=== PATIENT | male | born 1935 | race Caucasian/White ===

== ENCOUNTER 2016-10-18 10:11 | Day surgery (SDC) | payer MEDICARE ==
[2016-10-17 11:34] VITALS: BMI 22.9
[~2016-10-18 10:11] MED LIST: LACTATED RINGERS 1,000 ML IV SCH
[2016-10-18 11:28] VITALS: TEMP 96.6
[2016-10-18] MEDS ORDERED: ONDANSETRON 4 MG/2 ML VIAL IVP ONE (12:07)
[2016-10-18] MEDS ORDERED: PHENYLEPHRINE-0.9% NACL SYG 1 MG/10 ML SYRINGE ONE (12:23)
[2016-10-18] MEDS ORDERED: PROPOFOL 10 MG/ML 20 ML VIAL IV ONE (12:23)
--- NOTE | 2016-10-18 12:36 | P.PCN ---
Date of Procedure: 10/18/16 Procedure(s) Performed: BRIEF HISTORY: Patient is a 81-year-old, pleasant, male, scheduled for an upper endoscopy as a part of evaluation of progressive weight loss and abdominal pain for the last 6 months duration.. PROCEDURE PERFORMED: Esophagogastroduodenoscopy with biopsy. PREOPERATIVE DIAGNOSIS: Abdominal Pain and progressive weight loss. IV sedation per anesthesia. PROCEDURE: After informed consent was obtained, the patient was brought into the endoscopy unit. IV sedation was administered by Anesthesia under continuous monitoring. Initially the Olympus GIF-140 video endoscope was inserted into the mouth. Esophagus intubated without any difficulty. It was gradually advanced into the stomach and duodenum and carefully examined. The bulb and the second part of the duodenum had some duodenitis and biopsies were done from this area.. The scope at this time was withdrawn to the stomach, adequately insufflated with air, and upon careful examination, mucosa of the antrum, had mild diffuse gastritis and biopsies were done from this area. body, cardia and the fundus appeared normal. The scope was then withdrawn into the esophagus. Small hiatal hernia noted. The GE junction was located at 35 cm from the incisors. There was circumferential erythema with mucosal friability noted at the GE junction extending from 34-35 cm from the incisors and biopsies were done from this area. Also there was some luminal narrowing noted in this area but did not impede the passage of the scope. The rest of the esophagus appeared normal and the patient tolerated the procedure well. IMPRESSION: 1. Circumferential erythema with friability of the mucosa at the GE junction/ distal esophagus consistent with reflux esophagitis. 2. Few scattered gastritis and duodenitis. 3. Small hiatal hernia. RECOMMENDATIONS: The findings of this examination were discussed with the patient as well as his family. He was advised to follow with the biopsy results. He will continue with proton pump inhibitors and follow antireflux measures..
[2016-10-18 13:06] VITALS: RESP 16
[2016-10-18 13:20] VITALS: BP 118/74; PULSE 72
[2016-10-18] MEDS ORDERED: HEPARIN SODIUM,PORCINE 100 UNIT/ML 5 ML VIAL IV ONE (13:35)
== END 2016-10-18 13:47 | disposition home or self-care (01) ==
LOC: ORWHC2ENDO 10:11
PROVIDERS: ATTEND Internal Medicine Gastroenterology
DX: K29.80 Duodenitis without bleeding (principal); K29.50 Unspecified chronic gastritis without bleeding; K21.0 Gastro-esophageal reflux disease with esophagitis; K44.9 Diaphragmatic hernia without obstruction or gangrene; I25.10 Atherosclerotic heart disease of native coronary artery without angina pectoris; I10 Essential (primary) hypertension; E78.5 Hyperlipidemia, unspecified; I48.91 Unspecified atrial fibrillation; J45.909 Unspecified asthma, uncomplicated; G47.33 Obstructive sleep apnea (adult) (pediatric); G70.00 Myasthenia gravis without (acute) exacerbation; K21.9 Gastro-esophageal reflux disease without esophagitis
CPT/HCPCS: 88305; 80048; 88312; 88342; 43239; J1642; J2405; J2370; J2704